=== PATIENT | male | born 1950 | race Two or more races ===

== ENCOUNTER → 2017-01-19 | Outpatient (REF) | payer MEDICARE, OTHER ==
[2017-01-19 14:12] LABS: PERCENT SATURATION 45.2 % (19.7-37.4)
== END ==
LOC: M LAB REF 13:36
PROVIDERS: ATTEND Internal Medicine
DX: D64.9 Anemia, unspecified (principal)

== ENCOUNTER → 2017-04-30 | Outpatient (REF) | payer MEDICARE, OTHER ==
[2017-04-30 13:34] LABS: PERCENT SATURATION 51.8 % (19.7-50.0)
== END ==
LOC: M LAB REF 11:46
PROVIDERS: ATTEND Internal Medicine
DX: D64.9 Anemia, unspecified (principal)

== ENCOUNTER → 2017-09-16 | Outpatient (REF) | payer MEDICARE, OTHER ==
[2017-09-16 13:34] LABS: PROTHROMBIN TIME 13.3 SECONDS (12.4-14.5)
[2017-09-16 14:34] LABS: FERRITIN 1555 NG/ML (26-388); IRON (FE) 138 UG/DL (65-175); PERCENT SATURATION 41.4 % (19.7-50.0); TOTAL IRON BINDING CAPACITY 333 UG/DL (250-450)
== END ==
LOC: M LAB REF 13:18
DX: E83.119 Hemochromatosis, unspecified (principal); K76.9 Liver disease, unspecified
CPT/HCPCS: 83550

== ENCOUNTER → 2017-09-30 | Outpatient (CLI) | payer MEDICARE, OTHER ==
[~2017-09-30] MED LIST: LIDOCAINE 1% MDV 20ML VIAL As Ordered
== END ==
LOC: M RADPRO 11:22
DX: E83.119 Hemochromatosis, unspecified (principal); Z79.899 Other long term (current) drug therapy
CPT/HCPCS: 47000

== ENCOUNTER → 2017-11-03 | Outpatient (REF) | payer MEDICARE, OTHER ==
[2017-11-03 13:45] LABS: FERRITIN 1685 NG/ML (26-388); IRON (FE) 142 UG/DL (65-175); PERCENT SATURATION 43.4 % (19.7-50.0); TOTAL IRON BINDING CAPACITY 327 UG/DL (250-450)
== END ==
LOC: M LAB REF 13:00
DX: D64.9 Anemia, unspecified (principal)
CPT/HCPCS: 83550

== ENCOUNTER → 2018-05-31 | Outpatient (REF) | payer MEDICARE, OTHER ==
[2018-05-31 14:16] LABS: FERRITIN 2862 NG/ML (26-388); IRON (FE) 186 UG/DL (65-175); PERCENT SATURATION 59.8 % (19.7-50.0); TOTAL IRON BINDING CAPACITY 311 UG/DL (250-450)
== END ==
LOC: M LAB REF 12:31
DX: D64.9 Anemia, unspecified (principal)
CPT/HCPCS: 83550

== ENCOUNTER 2018-08-29 07:29 | Day surgery (SDC) | payer MEDICARE, OTHER ==
[~2018-08-29] VITALS: Ht 175.3 cm; Wt 83.0 kg
[~2018-08-29 07:29] MED LIST changes: +ASPI1TAB PO; +ASPI1TAB20 PO; -LIDOCAINE 1% MDV 20ML VIAL As Ordered; +LIDOCAINE 2% INJ 100 MG/5 ML SDV (FOR ANES.) As Ordered ONE; +LISI10TA4 PO; +MULTCAP PO; +PROPOFOL 200 MG/20 ML VIAL As Ordered ONE
[2018-08-29] MEDS ORDERED: PROPOFOL 200 MG/20 ML VIAL As Ordered ONE (07:40)
[2018-08-29] MEDS ORDERED: NS 1,000 ML IV ONE (07:45)
--- NOTE | 2018-08-29 07:54 | ROOR ---
Patient Name: Hero Bergman Procedure Date: 08/29/2018 7:30 AM Date of : 1950 Age: 68 Room: [facility] Gender: Male Note Status: Finalized Procedure: Total Colonoscopy to Cecum Indications: Screening for colorectal malignant neoplasm, Last colonoscopy: 2007 Providers: Laz Escamilla MD Referring MD: DIMITRIOS MONSIVAIS JR, MD Requesting Provider: Medicines: Monitored Anesthesia Care Complications: No immediate complications. Procedure: Pre-Anesthesia Assessment: - The heart rate, respiratory rate, oxygen saturations, blood pressure, adequacy of pulmonary ventilation, and response to care were monitored throughout the procedure. The Colonoscope was introduced through the anus and advanced to the cecum, identified by appendiceal orifice and ileocecal valve. The colonoscopy was performed without difficulty. The patient tolerated the procedure well. The quality of the bowel preparation was good. Findings: The perianal and digital rectal examinations were normal. Non-bleeding internal hemorrhoids were found during retroflexion. The hemorrhoids were small and Grade I (internal hemorrhoids that do not prolapse). Multiple small and large-mouthed diverticula were found in the recto-sigmoid colon, sigmoid colon and descending colon. The exam was otherwise without abnormality on direct and retroflexion views. Impression: - Non-bleeding internal hemorrhoids. - Diverticulosis in the recto-sigmoid colon, in the sigmoid colon and in the descending colon. - The examination was otherwise normal on direct and retroflexion views. - No specimens collected. - The exam was otherwise normal to the cecum. Recommendation: - Patient has a contact number available for emergencies. The signs and symptoms of potential delayed complications were discussed with the patient. Return to normal activities tomorrow. Written discharge instructions were provided to the patient. - High fiber diet. - Discharge patient to home. - Continue present medications. - Repeat colonoscopy in 10 years for screening purposes. - Return to referring physician. - The findings and recommendations were discussed with the patient's family. Laz Escamilla MD Laz Escamilla MD 08/29/2018 7:53:48 AM This report has been signed electronically. Number of Addenda: 0 Note Initiated On: 08/29/2018 7:30 AM Estimated Blood Loss: Estimated blood loss: none.
[2018-08-29 08:23] VITALS: BP 131/93
== END 2018-08-29 08:24 | disposition home or self-care (01) ==
LOC: M OPP 07:29
PROVIDERS: ATTEND Internal Medicine Gastroenterology
DX: Z12.11 Encounter for screening for malignant neoplasm of colon (principal); K64.0 First degree hemorrhoids; K57.30 Diverticulosis of large intestine without perforation or abscess without bleeding; Z79.82 Long term (current) use of aspirin; Z79.899 Other long term (current) drug therapy

== ENCOUNTER → 2018-09-16 | Outpatient (REF) | payer MEDICARE, OTHER ==
[~2018-09-16] MED LIST changes: -LIDOCAINE 2% INJ 100 MG/5 ML SDV (FOR ANES.) As Ordered ONE; -PROPOFOL 200 MG/20 ML VIAL As Ordered ONE
[2018-09-16 14:16] LABS: PERCENT SATURATION 27.9 % (19.7-50.0)
== END ==
LOC: M LAB REF 12:33
PROVIDERS: ATTEND Internal Medicine
DX: R94.5 Abnormal results of liver function studies (principal); D64.9 Anemia, unspecified

== ENCOUNTER → 2018-12-09 | Outpatient (REF) | payer MEDICARE, OTHER ==
[~2018-12-09] MED LIST changes: -ASPI1TAB PO; +ASPI81TA26 PO
[2018-12-09 13:48] LABS: PERCENT SATURATION 54.4 % (19.7-50.0)
== END ==
LOC: M LAB REF 12:42
PROVIDERS: ATTEND Internal Medicine
DX: D64.9 Anemia, unspecified (principal)

== ENCOUNTER → 2019-06-16 | Outpatient (REF) | payer MEDICARE, OTHER ==
[~2019-06-16] MED LIST changes: -ASPI1TAB20 PO; +ASPI325T57 PO
[2019-06-16 15:22] LABS: PERCENT SATURATION 62.5 % (19.7-50.0)
== END ==
LOC: M LAB REF 13:33
PROVIDERS: ATTEND Internal Medicine
DX: E83.19 Other disorders of iron metabolism (principal)

== ENCOUNTER → 2019-12-29 | Outpatient (REF) | payer MEDICARE, OTHER ==
[2019-12-29 13:07] LABS: PERCENT SATURATION 52.9 % (19.7-50.0)
== END ==
LOC: M LAB REF 12:07
PROVIDERS: ATTEND Internal Medicine
DX: D64.9 Anemia, unspecified (principal)

== ENCOUNTER → 2020-07-02 | Outpatient (REF) | payer MEDICARE, OTHER ==
[2020-07-02 13:17] LABS: PERCENT SATURATION 23.8 % (19.7-50.0)
== END ==
LOC: M LAB REF 12:27
PROVIDERS: ATTEND Internal Medicine
DX: D64.9 Anemia, unspecified (principal)

== ENCOUNTER → 2021-01-29 | Outpatient (REF) | payer MEDICARE, OTHER ==
[~2021-01-29] MED LIST changes: +LISI10TA22 PO; -LISI10TA4 PO
[2021-01-29 14:00] LABS: PERCENT SATURATION 40.9 % (19.7-50.0)
== END ==
LOC: M LAB REF 12:40
PROVIDERS: ATTEND Internal Medicine
DX: D64.9 Anemia, unspecified (principal)

== ENCOUNTER → 2021-02-14 | Outpatient (CLI) | payer MEDICARE, OTHER ==
--- NOTE | 2021-02-14 09:25 | REP ---
INDICATION: LIVER DISEASE. COMPARISON: MRI 05/29/2015. TECHNIQUE: Real-time sonographic evaluation of right upper quadrant performed. FINDINGS: The gallbladder demonstrates no evidence of intraluminal sludge or calculi, wall thickening or pericholecystic fluid. There is no intrahepatic or extrahepatic biliary dilatation, common bile duct measures 6 mm in maximum diameter. There is diffuse heterogeneous increased echotexture of the liver compatible with diffuse fibrofatty infiltration. No gross mass is seen. The pancreas demonstrates homogeneous echotexture with no gross mass. The right kidney demonstrates no hydronephrosis, with a normal size of 11.6 cm in length. No free fluid is seen. IMPRESSION: Diffuse fibrofatty infiltration of the liver. <Electronically signed by Vern Hill > 02/14/21 [id number]
== END ==
LOC: M RAD 07:57
PROVIDERS: ATTEND Internal Medicine
DX: K70.9 Alcoholic liver disease, unspecified (principal); K76.0 Fatty (change of) liver, not elsewhere classified

== ENCOUNTER → 2022-03-05 | Outpatient (REF) | payer MEDICARE, OTHER ==
[2022-03-05 13:38] LABS: PERCENT SATURATION 25.4 % (19.7-50.0)
== END ==
LOC: M LAB REF 12:11
PROVIDERS: ATTEND Internal Medicine
DX: E83.19 Other disorders of iron metabolism (principal)

== ENCOUNTER → 2022-04-06 | Outpatient (CLI) | payer MEDICARE, OTHER | LOC: M RAD 08:01 | PROVIDERS: ATTEND Internal Medicine | DX: K76.0 Fatty (change of) liver, not elsewhere classified (principal) ==

== ENCOUNTER → 2022-09-03 | Outpatient (REF) | payer MEDICARE, OTHER | LOC: M LAB REF 16:26 | PROVIDERS: ATTEND Internal Medicine | DX: K75.81 Nonalcoholic steatohepatitis (NASH) (principal) ==

== ENCOUNTER → 2023-04-15 | Outpatient (CLI) | payer MEDICARE, OTHER | LOC: M WHC 09:19 | PROVIDERS: ATTEND Internal Medicine | DX: K70.9 Alcoholic liver disease, unspecified (principal); K80.20 Calculus of gallbladder without cholecystitis without obstruction ==

== ENCOUNTER → 2023-09-22 | Outpatient (REF) | payer MEDICARE, OTHER | LOC: M LAB REF 13:34 | PROVIDERS: ATTEND Internal Medicine | DX: K75.81 Nonalcoholic steatohepatitis (NASH) (principal) ==

== ENCOUNTER → 2023-11-17 | Outpatient (CLI) | payer MEDICARE, OTHER | LOC: M RAD 08:36 | PROVIDERS: ATTEND Internal Medicine | DX: K70.9 Alcoholic liver disease, unspecified (principal); K74.00 Hepatic fibrosis, unspecified ==

== ENCOUNTER → 2024-09-28 | Outpatient (REF) | payer MEDICARE, OTHER | LOC: M LAB REF 12:06 | PROVIDERS: ATTEND Internal Medicine | DX: K75.81 Nonalcoholic steatohepatitis (NASH) (principal); K74.00 Hepatic fibrosis, unspecified ==

== ENCOUNTER → 2024-10-30 | Outpatient (CLI) | payer MEDICARE, OTHER | LOC: M RAD 10:14 | PROVIDERS: ATTEND Internal Medicine | DX: K76.89 Other specified diseases of liver (principal); K76.0 Fatty (change of) liver, not elsewhere classified; K82.4 Cholesterolosis of gallbladder ==

== ENCOUNTER → 2025-03-14 | Outpatient (REF) | payer MEDICARE, OTHER | LOC: M LAB REF 14:16 | PROVIDERS: ATTEND Internal Medicine | DX: K74.00 Hepatic fibrosis, unspecified (principal) ==

== ENCOUNTER → 2025-04-24 | Outpatient (CLI) | payer MEDICARE, OTHER | LOC: M RAD 09:55 | PROVIDERS: ATTEND Internal Medicine | DX: K74.00 Hepatic fibrosis, unspecified (principal) ==